=== PATIENT | male | born 1985 | race Two or more races ===

== ENCOUNTER 2020-02-03 19:09 | Day surgery (SDC) | payer OTHER ==
[~2020-02-03] VITALS: Ht 170.2 cm; Wt 68.0 kg
[2020-02-03] MEDS ORDERED: SODIUM CHLORIDE FLUSH 10ML SYR IVF ONE (19:30)
[2020-02-03] MEDS ORDERED: MAALOX/HYOSCYAMINE/LIDOCAINE 45 ML BTL PO ONE (19:30)
[2020-02-03] MEDS ORDERED: MAALOX/HYOSCYAMINE/LIDOCAINE 45 ML BTL ONE (19:47)
[2020-02-03 19:49] LABS: BASOPHILS % (AUTO) 0 % (0-1); EOSINOPHILS % (AUTO) 1 % (1-7); LYMPHOCYTES % (AUTO) 16 % (22-44); MEAN CORPUSCULAR HEMOGLOBIN 29.5 pg (27.5-34.5); MEAN CORPUSCULAR HGB CONC 33.8 g/dL (33.2-36.2); MONOCYTES % (AUTO) 9 % (2-9); NEUTROPHILS % (AUTO) 74 % (42-75); PLATELET COUNT 334 x10^3/uL (130-400); RED BLOOD COUNT 4.72 x10^6/uL (4.38-5.82); RED CELL DISTRIBUTION WIDTH 13.5 % (9.4-14.8)
[2020-02-03 19:56] LABS: ALANINE AMINOTRANSFERASE 34 U/L (12-78); ALBUMIN 4.3 g/dL (3.4-5.0); ANION GAP 4 mmol/L (5-15); CHLORIDE 110 mmol/L (98-107); CREATININE 1.14 mg/dL (0.7-1.3)
[2020-02-03 19:59] LABS: ALKALINE PHOSPHATASE 44 U/L (45-117); BILIRUBIN,TOTAL 0.4 mg/dL (0.2-1.0); TOTAL PROTEIN 7.7 g/dL (6.4-8.2)
[2020-02-03 20:00] LABS: MD NO
[2020-02-03] MEDS ORDERED: MORPHINE SULFATE 4 MG/ML, 1ML ONE ×2 (20:36→21:39)
[2020-02-03] MEDS: MORPHINE SULFATE 4 MG/ML, 1ML IVPush PRN ×2 (20:39→21:40)
[2020-02-03] MEDS ORDERED: SODIUM CHLORIDE 0.9% 1,000ML IVBOLUS ONE (21:30)
[2020-02-03] MEDS ORDERED: CEFOTETAN PMX 2GM/50ML 50 ML IV ONE (21:30)
--- NOTE | 2020-02-03 21:30 | NUR ---
TASK RN: REQUESTED ABX FROM PHARMACY. PT STATES PAIN IN TOLERABLE AT THIS TIME, REFUSING PAIN MEDS.
--- NOTE | 2020-02-03 21:44 | NUR ---
TASK RN: PT MEDICATED PER EMAR. PT C/O 09/16 PAIN, PAIN MEDS ADMIN. IVF RUNNING. ASSISTING PT WITH UNDRESSING.
--- NOTE | 2020-02-03 22:02 | NUR ---
RECEIVED REPORT FROM BLADE MAY. ASSUMING CARE AT THIS TIME.
[2020-02-03] MEDS ORDERED: OMNIPAQUE 350 MG/ML, 100ML BOTTLE ONE (22:26)
--- NOTE | 2020-02-03 22:26 | NUR ---
REPORT GIVEN TO LOY MAY. PT RTG TO ROOM [id number]
[2020-02-03] MEDS ORDERED: FENTANYL PF 250 MCG/5ML ONE (22:28)
[2020-02-03] MEDS ORDERED: MIDAZOLAM 1 MG/ML, 2ML ONE (22:28)
[2020-02-03] MEDS ORDERED: CEFOTETAN PMX 2GM/50ML 50 ML ONE (22:28)
[2020-02-03] MEDS ORDERED: PROPOFOL 10 MG/ML, 20ML ONE (22:30)
[2020-02-03] MEDS ORDERED: SUCCINYLCHOLINE 20 MG/ML, 10ML ONE (22:30)
[2020-02-03] MEDS ORDERED: ROCURONIUM 10MG/ML,5ML ONE (22:30)
[2020-02-03] MEDS ORDERED: GLYCOPYRROLATE 0.2MG/1ML, 5ML ONE (22:30)
[2020-02-03] MEDS ORDERED: NEOSTIGMINE 1 MG/ML, 10ML ONE (22:30)
[2020-02-03] MEDS ORDERED: EPINEPHRINE 1 MG/ML, 1ML ONE (22:36)
[2020-02-03] MEDS ORDERED: BUPIVACAINE/PF 0.5% ONE (22:36)
[2020-02-03 22:51] VITALS: BP 134/91
[2020-02-03] MEDS ORDERED: ONDANSETRON 2MG/ML, 2ML IVPush PRN (23:00)
[2020-02-03] MEDS ORDERED: morphine SULFATE 10 MG/ML, 1ML IVPush PRN (23:00)
[2020-02-03] MEDS ORDERED: MEPERIDINE/PF 25MG/0.5ML IVPush PRN (23:00)
[2020-02-03] MEDS ORDERED: LABETALOL 5MG/ML, 20ML IV PRN (23:00)
[2020-02-03] MEDS ORDERED: ACETAMINOPHEN 325 MG TABLET PO PRN (23:00)
[2020-02-03] MEDS ORDERED: hydrALAzine 20 MG/ML, 1ML IV PRN (23:00)
[2020-02-03] MEDS ORDERED: HYDROmorphone 1 MG/ML, 1ML INJ IVPush PRN (23:00)
[2020-02-03] MEDS ORDERED: FENTANYL PF 100 MCG/2ML IV PRN (23:00)
[2020-02-03] MEDS ORDERED: OXYcodone 5 MG/5 ML ORAL.SOL UDC PO PRN (23:00)
[2020-02-03] MEDS ORDERED: KETOROLAC 30 MG/1 ML ONE (23:13)
[2020-02-04 00:39] VITALS: BP 115/68
[2020-02-04] MEDS ORDERED: ACET-1600 PO (01:05)
[2020-02-04] MEDS ORDERED: IBUP-1223 PO (01:06)
[2020-02-04] MEDS ORDERED: OXYC5TAB2 PO (01:07)
[2020-02-04] MEDS ORDERED: MORPHINE SULFATE 4 MG/ML, 1ML IVPush PRN (01:30)
[2020-02-04] MEDS ORDERED: ONDANSETRON 2MG/ML, 2ML IVPush PRN (01:30)
[2020-02-04] MEDS ORDERED: HEPARIN 5,000 UNITS/ML, 1ML SQ SCH (01:30)
[2020-02-04] MEDS ORDERED: OXYcodone 5 MG/5 ML ORAL.SOL UDC PO PRN (01:30)
[2020-02-04] MEDS ORDERED: LACTATED RINGERS 1,000 ML IV SCH (01:30)
[2020-02-04] MEDS: ACETAMINOPHEN 500 MG TABLET PO SCH ×2 (01:57→09:24)
[2020-02-04 04:15] VITALS: BP 100/63
[2020-02-04] MEDS ORDERED: KETOROLAC 30 MG/1 ML IV PRN (05:15)
[2020-02-04] MEDS ORDERED: IBUPROFEN 600 MG TABLET PO SCH (06:00)
[2020-02-04 07:44] VITALS: BP 102/66
== END 2020-02-04 10:45 | disposition home or self-care (01) ==
LOC: ED 19:48 → OR 19:50 → EDIP 22:12 → UNDOADMIN 22:12 → 4NE 22:45 → EDIP 22:45 → DCLOUNGE 02-04 10:37 → 4NE 02-04 10:37 → UNDODISIN 02-04 10:45 → OR 02-04 10:45
PROVIDERS: ATTEND Emergency Medicine
DX: K35.890 Other acute appendicitis without perforation or gangrene (principal); E78.5 Hyperlipidemia, unspecified; Z79.899 Other long term (current) drug therapy; Z20.828 Contact with and (suspected) exposure to other viral communicable diseases
CPT/HCPCS: 36415; 44970; 74177; 80053; 83690; 85025; 87635; 88304; J0171; J0330; J1644; J1885; J2250; J2270; J2405; J2704; J2710; J3010; J7030; Q9967; G0378